=== PATIENT | male | born 1970 | race Caucasian/White ===

== ENCOUNTER 2022-10-20 19:20 | Emergency (ER) | payer OTHER ==
[~2022-10-20] VITALS: Ht 172.7 cm; Wt 86.0 kg
[2022-10-20] MEDS ORDERED: ONDANSETRON HCL 4 MG/2 ML VIAL IV ONE (19:45)
[2022-10-20] MEDS ORDERED: MORPHINE SULFATE INJ 2 MG/ml SYRG IV ONE (19:45)
[2022-10-20] MEDS ORDERED: IOHEXOL 300 MG/ML 100ML BOTTLE IJ ONE (20:05)
[2022-10-20] MEDS ORDERED: KETOROLAC TROMETH 30 MG/ML 1ML VIAL IV ONE (20:45)
[2022-10-20 21:13] LABS: Basophils # (auto) 0.1 10 ^3/uL (0-0.2); Basophils % (auto) 0.3 % (0.0-2.0); Eosinophils # (auto) 0 10 ^3/uL (0-0.8); Hematocrit 43.4 % (41.0-53.0); Hemoglobin 14.4 g/dL (13.5-17.5); Lymphocytes # (auto) 1.7 10 ^3/uL (0.4-5.4); Lymphocytes % (auto) 9.9 % (10.0-50.0); Mean Corpuscular Hemoglobin 30.2 pg (28.0-32.0); Mean Corpuscular Hgb Conc. 33.2 g/dL (32.0-36.0); Mean Corpuscular Volume 91.1 fL (80.0-100.0); Monocytes # (auto) 1.5 10 ^3/uL (0-1.3); Monocytes % (auto) 8.8 % (0.0-12.0); Neutrophils # (auto) 14.1 10 ^3/uL (1.6-8.6); Nucleated Red Blood Cells % 0.1 %; Red Blood Cells 4.77 10^6/uL (4.5-5.90); Red Cell Distribution Width 13.9 % (11.8-14.3); White Blood Cell 17.5 10^3/uL (4.4-10.8)
[2022-10-20 21:23] LABS: Albumin 3.2 g/dL (3.4-5.0); BUN/Creatinine Ratio 19.4 (10.0-20.0); Potassium 3.9 mmol/L (3.5-5.1)
[2022-10-20 21:26] LABS: Bilirubin, Total 0.4 mg/dL (0.2-1.0)
[2022-10-20] MEDS ORDERED: ONDA-144 PO (23:36)
[2022-10-20] MEDS ORDERED: NAP500T PO (23:36)
[2022-10-20] MEDS ORDERED: HYDR1TAB97 PO (23:36)
[2022-10-20 23:50] VITALS: BP 113/72
== END 2022-10-21 00:09 | disposition home or self-care (01) ==
LOC: ER 19:20
DX: N13.9 Obstructive and reflux uropathy, unspecified (principal); N20.1 Calculus of ureter
CPT/HCPCS: 36415; 74177; 80053; 83690; 85025; 96374; 96375; 99285; J1885; J2270; J2405; Q9967